=== PATIENT | male | born 1995 | race Two or more races ===

== ENCOUNTER 2023-04-22 19:03 | Emergency (ER) | payer MEDICAID, OTHER ==
[~2023-04-22] VITALS: Ht 180.3 cm; Wt 87.2 kg
[2023-04-22] MEDS ORDERED: CEPH500C PO (22:07)
[2023-04-22] MEDS ORDERED: IBUP-1456 PO (22:07)
[2023-04-22] MEDS ORDERED: TETANUS-DIPTH-ACEL PERTUSSIS 0.5ML SYR Tdap IM ONE (22:15)
[2023-04-22 22:30] VITALS: BP 103/49; PULSE 72; RESP 18; TEMP 97.6; O2SAT 100
== END 2023-04-22 22:49 | disposition home or self-care (01) ==
LOC: ER 19:03
DX: S61.214A Laceration without foreign body of right ring finger without damage to nail, initial encounter (principal); Z79.1 Long term (current) use of non-steroidal anti-inflammatories (NSAID); Z79.899 Other long term (current) drug therapy; W25.XXXA Contact with sharp glass, initial encounter; Y93.89 Activity, other specified; Y92.89 Other specified places as the place of occurrence of the external cause; Y99.8 Other external cause status
CPT/HCPCS: 12001; 90471; 90715

== ENCOUNTER 2023-07-06 15:45 | Emergency (ER) | payer MEDICAID ==
[~2023-07-06] VITALS: Ht 180.3 cm; Wt 91.5 kg
[~2023-07-06 15:45] MED LIST: CEPH500C PO; IBUP-1456 PO
[2023-07-06 19:10] VITALS: BP 99/50; PULSE 52; RESP 16; TEMP 99.2; O2SAT 97
[2023-07-06] MEDS ORDERED: CLIN1CAP70 PO (19:50)
[2023-07-06] MEDS ORDERED: MUPI2OIN2 EX (19:50)
[2023-07-06] MEDS: CLINDAMYCIN HCL 150 MG CAP PO ONE (20:26)
== END 2023-07-06 20:28 | disposition home or self-care (01) ==
LOC: ER 15:45
DX: S80.861A Insect bite (nonvenomous), right lower leg, initial encounter (principal); L03.115 Cellulitis of right lower limb; Z79.1 Long term (current) use of non-steroidal anti-inflammatories (NSAID); Z79.899 Other long term (current) drug therapy; W57.XXXA Bitten or stung by nonvenomous insect and other nonvenomous arthropods, initial encounter; Y93.89 Activity, other specified; Y92.89 Other specified places as the place of occurrence of the external cause; Y99.8 Other external cause status